=== PATIENT | female | born 1990 | race Caucasian/White ===

== ENCOUNTER 2018-02-11 12:20 | Emergency (ER) | payer MEDICAID ==
--- NOTE | 2018-02-11 13:47 | NUR ---
PATIENT WAS CALLED TWICE FROM LOBBY NO ANSWER PATIENT IS LWBS NO FURTHER CARE RENDERED.
== END 2018-02-11 13:35 | disposition left against medical advice (07) ==
LOC: MED 12:20
DX: Z53.21 Procedure and treatment not carried out due to patient leaving prior to being seen by health care provider (principal)

== ENCOUNTER 2018-06-08 01:54 | Emergency (ER) | payer MEDICAID ==
[~2018-06-08] VITALS: Ht 165.1 cm; Wt 61.2 kg
[2018-06-08 02:07] VITALS: BP 116/68
--- NOTE | 2018-06-08 02:16 | NUR ---
PT TAKEN TO BED 7
--- NOTE | 2018-06-08 02:31 | NUR ---
Dr. Melchor evaluating patient at bedside.
--- NOTE | 2018-06-08 02:31 | NUR ---
X-Ray at bedside.
[2018-06-08] MEDS ORDERED: KETOROLAC 60 MG/2 ML VIAL IM ONE (02:35)
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
[2018-06-08 03:14] VITALS: BP 116/68
== END 2018-06-08 03:14 | disposition home or self-care (01) ==
LOC: MED 01:54
DX: S62.603A Fracture of unspecified phalanx of left middle finger, initial encounter for closed fracture (principal); J45.909 Unspecified asthma, uncomplicated; Y04.2XXA Assault by strike against or bumped into by another person, initial encounter; Y93.89 Activity, other specified; Y92.89 Other specified places as the place of occurrence of the external cause; Y99.8 Other external cause status
CPT/HCPCS: 73140; 96372; 99283; J1885; Q0092

== ENCOUNTER 2019-11-19 22:14 | Emergency (ER) | payer MEDICAID, OTHER ==
[~2019-11-19] VITALS: Ht 165.1 cm; Wt 60.8 kg
[2019-11-19 22:31] VITALS: BP 118/76
--- NOTE | 2019-11-19 22:35 | NUR ---
PT TRIAGED AND SENT BACK TO LOBBY.
--- NOTE | 2019-11-20 | NUR ---
PATIENT LEFT WITHOUT BEING SEEN BY DR. FONTAINE. NO FURTHER CARE PROVIDED FOR PATIENT.
== END 2019-11-20 | disposition left against medical advice (07) ==
LOC: MED 22:14
DX: R42 Dizziness and giddiness (principal); Z53.21 Procedure and treatment not carried out due to patient leaving prior to being seen by health care provider

== ENCOUNTER 2021-01-06 14:54 | Emergency (ER) | payer OTHER, SELFPAY ==
[~2021-01-06] VITALS: Ht 165.1 cm; Wt 59.0 kg
[2021-01-06 15:11] VITALS: BP 127/72
--- NOTE | 2021-01-06 15:22 | NUR ---
PT IN [place] [facility] NUNEZ.
--- NOTE | 2021-01-06 16:00 | NUR ---
CALLED BY JOSE ARAUJO, NO ANSWER
--- NOTE | 2021-01-06 16:10 | NUR ---
PATIENT WAS PRESENT WHEN CALLED AND ASKED THEM TO WAIT IN THE TENT
--- NOTE | 2021-01-06 16:15 | NUR ---
PT CALLED BY JOSE ARAUJO, NO ANSWER
--- NOTE | 2021-01-06 16:20 | NUR ---
PT WAS CALLED, NO ANSWER.
--- NOTE | 2021-01-06 17:01 | NUR ---
ATTEMPTED TO CALL PT, NUMBERS ON FILE ARE NOT VALID
--- NOTE | 2021-01-06 17:10 | NUR ---
PATIENT LEFT WITHOUT BEING SEEN BY JOSE ARAUJO. NO FURTHER CARE PROVIDED FOR PATIENT.
--- NOTE | 2021-01-06 18:15 | NUR ---
PT CALLED STATING SHE WAS WAITING OUTSIDE THIS WHOLE TIME. DR SIMMS MADE AWARE
--- NOTE | 2021-01-06 18:20 | NUR ---
DR SIMMS OUTSIDE EVALUATING PT
--- NOTE | 2021-01-06 19:55 | NUR ---
COLLECTED FELECIA [place] AND GIVEN TO PRIYANKA AUXILIARY POWERPLANT OPERATOR.
--- NOTE | 2021-01-06 20:59 | NUR ---
PT NOT REPORTING TO NAME BEING CALLED. UNABLE TO COLLECT URINE SAMPLE.
--- NOTE | 2021-01-06 21:18 | NUR ---
PT UNABLE TO GIVE URINE AT THIS TIME. WILL TRY AGAIN. PT IS WAITING IN CAR.
[2021-01-06] MEDS ORDERED: ALBU0.0912 IH (21:26)
[2021-01-06] MEDS ORDERED: NAPR-54 PO (21:26)
[2021-01-06] MEDS ORDERED: AZIT250T4 PO (21:26)
--- NOTE | 2021-01-06 21:44 | NUR ---
PT CALLED IN LOBBY AND OUTSIDE REGARDING DISCHARGE. NO ANSWER. WILL TRY AGAIN.
--- NOTE | 2021-01-06 21:58 | NUR ---
PT RETURNED TO LOBBY, UNABLE TO PROVIDE URINE AT THIS TIME.
[2021-01-06 22:00] VITALS: BP 118/79
--- NOTE | 2021-01-06 22:00 | NUR ---
DPatient discharged with v/s stable. Written and verbal after care instructions given and explained. Patient alert, oriented and verbalized understanding of instructions. Ambulatory with steady gait. All questions addressed prior to discharge. ID band removed. Patient advised to follow up with PMD. Rx of PROVENTIL HFA MDI, ZITHROMAX Z PACK, NAPROSYN given. Patient educated on indication of medication including possible reaction and side effects. Opportunity to ask questions provided and answered.
== END 2021-01-06 22:00 | disposition home or self-care (01) ==
LOC: MED 14:54
DX: J20.9 Acute bronchitis, unspecified (principal); Z20.822 Contact with and (suspected) exposure to COVID-19; J45.909 Unspecified asthma, uncomplicated; Z79.899 Other long term (current) drug therapy
CPT/HCPCS: 71045; 99284